=== PATIENT | male | born 1965 | race American Indian/Alaskan Native ===

== ENCOUNTER 2020-07-22 06:06 | Emergency (ER) | payer SELFPAY ==
[2020-07-22] MEDS ORDERED: THIAMINE 100 MG, FOLIC ACID 1 MG, MULTIPLE VITAMIN INJ, ADULT 10 ML in SODIUM CHLORIDE ... IV ONE (06:27)
--- NOTE | 2020-07-22 06:33 | Emergency Department Report ---
ED Alcohol HPI - General Chief Complaint: Alcohol Stated Complaint: ETOH Time Seen by Provider: 07/22/20 06:27 Source: patient, EMS Mode of arrival: Stretcher Limitations: Other - History of Present Illness Initial Comments: Patient is 55 years old male with history of chronic alcohol abuse. Patient brought to the emergency room via EMS from a warehouse after patient became confused and started exposing his private area to the people around him. Upon arrival patient is alert however is confused. Stroke scale is 0 as patient is moving all his extremities with no difficulties and no significant slurred speech or can be observed. Patient also complaining of mild headache. Patient has a dry blood on his face and he stated that he fell last night. Patient denied any neck pain or injury. Patient also denied any chest pain or shortness of breath. No abdominal pain nausea or vomiting. MD Complaint: alcohol intoxication Last Drink: just [employer] Chronic Alcohol Use: Yes Recent Trauma: Yes Treatments Prior to Arrival: none - Related Data Allergies Allergy/AdvReac Type Severity Reaction Status Date / Time No Known Allergies Allergy Verified 07/22/20 06:29 ED Review of Systems ROS: Stated complaint: ETOH Other details as noted in HPI Comment: All other systems reviewed and negative Constitutional: denies: chills, fever Respiratory: denies: cough, shortness of breath, SOB with exertion Cardiovascular: denies: chest pain, palpitations Gastrointestinal: denies: abdominal pain, nausea, vomiting Musculoskeletal: denies: back pain Neurological: headache. denies: weakness, numbness, paresthesias Psychiatric: denies: visual hallucinations, homicidal thoughts, suicidal thoughts ED Past Medical Hx - Past Medical History Previous Medical History?: Yes Hx Diabetes: Yes Hx Asthma: Yes - Surgical History Additional Surgical History: unknown - Social History Smoking Status: Current Every Day Smoker Substance Use Type: Alcohol, Marijuana ED Physical Exam - General Limitations: Other General appearance: alert, appears intoxicated - Head Head exam: Present: other (dried blood on the face.) - Eye Eye exam: Present: normal appearance, PERRL - ENT ENT exam: Present: normal exam, normal orophraynx, mucous membranes moist - Neck Neck exam: Present: normal inspection, full ROM. Absent: tenderness, meningismus, lymphadenopathy, thyromegaly - Respiratory Respiratory exam: Present: normal lung sounds bilaterally - Cardiovascular Cardiovascular Exam: Present: regular rate, normal rhythm, normal heart sounds - GI/Abdominal GI/Abdominal exam: Present: soft, normal bowel sounds. Absent: distended, tenderness, guarding, rebound, rigid, organomegaly, mass, bruit, pulsatile mass, hernia - Extremities Exam Extremities exam: Present: normal inspection, full ROM, normal capillary refill. Absent: pedal edema, calf tenderness - Back Exam Back exam: Present: normal inspection, full ROM. Absent: CVA tenderness (R), CVA tenderness (L) - Neurological Exam Neurological exam: Present: alert, oriented X3, CN II-XII intact, normal gait, reflexes normal - Skin Skin exam: Present: warm, intact, normal color ED Course Vital Signs 07/22/20 07/22/20 07/22/20 06:23 10:53 20:00 Temperature Pulse Rate 94 H 66 Respiratory 16 17 20 Rate Blood Pressure 114/83 Blood Pressure 108/67 [Right] O2 Sat by Pulse 98 99 98 Oximetry 07/23/20 07/23/20 07/23/20 01:53 07:12 07:20 Temperature 97.6 F Pulse Rate 69 80 78 Respiratory 18 11 L 18 Rate Blood Pressure Blood Pressure 120/88 [Right] O2 Sat by Pulse 98 95 99 Oximetry 07/23/20 07/23/20 07/23/20 07:30 07:45 08:00 Temperature Pulse Rate 88 69 81 Respiratory 14 19 20 Rate Blood Pressure 113/62 108/55 104/58 Blood Pressure [Right] O2 Sat by Pulse 95 96 97 Oximetry 07/23/20 07/23/20 07/23/20 08:01 08:15 08:30 Temperature 97.8 F Pulse Rate 86 86 87 Respiratory 20 13 22 Rate Blood Pressure 100/66 103/71 Blood Pressure 120/70 [Right] O2 Sat by Pulse 98 99 96 Oximetry 07/23/20 07/23/20 07/23/20 08:46 09:00 09:16 Temperature Pulse Rate 101 H 90 81 Respiratory 42 H 20 22 Rate Blood Pressure 103/71 103/71 95/51 Blood Pressure [Right] O2 Sat by Pulse 94 97 96 Oximetry 07/23/20 07/23/20 07/23/20 09:30 09:45 10:00 Temperature Pulse Rate Respiratory 16 Rate Blood Pressure 106/56 96/57 112/76 Blood Pressure [Right] O2 Sat by Pulse 85 88 Oximetry 1207/23/20 07/23/20 10:15 10:30 10:45 Temperature Pulse Rate Respiratory Rate Blood Pressure 102/59 103/59 96/59 Blood Pressure [Right] O2 Sat by Pulse Oximetry 07/23/20 07/23/20 07/23/20 11:00 11:16 11:30 Temperature Pulse Rate Respiratory Rate Blood Pressure 102/63 111/55 96/58 Blood Pressure [Right] O2 Sat by Pulse Oximetry 07/23/20 07/23/20 07/23/20 11:47 12:01 12:15 Temperature Pulse Rate Respiratory Rate Blood Pressure 126/79 90/53 98/58 Blood Pressure [Right] O2 Sat by Pulse Oximetry 07/23/20 07/23/20 07/23/20 12:30 12:45 13:30 Temperature Pulse Rate Respiratory Rate Blood Pressure 100/65 92/61 92/61 Blood Pressure [Right] O2 Sat by Pulse 84 Oximetry ED Medical Decision Making - Lab Data Result diagrams: 07/22/20 06:37 07/22/20 06:37 - Medical Decision Making Patient is 55 years old male with history of chronic alcohol abuse. Patient brought to the emergency room via EMS from a warehouse after patient became con fused and started exposing his private area to the people around him. Upon arrival patient is alert however is confused. Stroke scale is 0 as patient is moving all his extremities with no difficulties and no significant slurred speech or can be observed. Patient also complaining of mild headache. Patient has a dry blood on his face and he stated that he fell last night. Patient denied any neck pain or injury. Patient also denied any chest pain or shortness of breath. No abdominal pain nausea or vomiting. Patient became very agitated and had to receive Geodon 20 mg IM. Labs reviewed and is unremarkable. CT brain and CT facial still pending. Patient will need psychiatric evaluation as his alcohol level is negative. I believe this is most likely acute psychosis with possible history of schizophrenia given patient presentation. Patient has been evaluated by our psychiatric team and advised to discharge patient and follow-up as an outpatient. Patient is alert, oriented x3 no acute distress. Patient denying suicidal or homicidal ideation. Patient also denied any visual or auditory hallucination. Patient is medically and psychiatrically stable for discharge. Critical care attestation.: If time is entered above; I have spent that time in minutes in the direct care of this critically ill patient, excluding procedure time. ED Disposition Clinical Impression: Altered mental status, Substance abuse Disposition: DC-01 TO HOME OR SELFCARE Is pt being admited?: No Condition: Stable Additional Instructions: H[facility]ELESS RESOURCES: [facility]? If you are in need of help or know someone who does, please contact us at [email or web address] , or come to our offices at [address] [place] [phone], Wednesday-Wednesday beginning at 8AM. [facility] Admission at 7am Wed to Wed Address[place] [address] Client Engagement [phone] Regular program admission occurs Wednesday through Wednesday at 7:00 amand operates on a first come, first serve basis.Because we cant anticipate program availability in advance andprogram spots are in high demand, we recommend arriving early. Space fills up fast! Next steps can include: Assignment to a [facility] program bed Connection to and placement in a partner program, or Referral to a partner agency [facility]: [facility] Address: [address] [place] [address] How do I join the [facility] housing program? Our housing programs are offered based on availability. If you are looking to participate in our housing program, simply call [phone] to find out if we have available space. Since we do receive many calls, please allow up to 48 hours for one of our housing specialists to return your call. If we do not have vacancies, we suggest callingthe [facility] hotline at 211 for additional housing options. [facility] Admission at 4:30pm daily Address: [place] [address] The [facility] in2nite!goal is to take chronically homeless men and help them overcome their barriers, change them as human beings,making them productive and self- sufficient individuals. Each [employer] participant is housed at our facility for up to a year while they participate in transitional work (earning $7.40/hr for 30+ hours per week). All participants renounce dependency and remain drug and alcohol free. Personal support, case management, and workforce training is offered throughout the program. We also provide AA/NA Classes, GED classes, support in obtaining a lease purchase truck driver's licenses,help setting up a bank account,and life skill preparation courses. IF A MAN IS COMMITTED TO BEING CLEAN, TO ADDRESSING THE PAST, AND TO WORKING, WE WILL HELP HIM GET A SCIENCE SPECIALIST JOB, TRANSPORTATION AND PERMANENT HOUSING WITHIN A YEAR. [employer] [address] [place] [address] [email or web address] In case of an emergency, please contact the following numbers: [place] Crisis and Access Line: Number: Crisis Text Line: (Text START) Number: 385313 Suicide Prevention Line: Number: Emergency Number: 911 SUBSTANCE ABUSE PROGRAMS: [facility]: Location: [place], [place] [facility] Address: [address] [place] [address] [facility] Address: [address] [place] [address] [facility]: Address: [address] [place] [address] [facility]: Address: [address] [place] [address] [facility] Address: [address] [place] [address]. Please contact above numbers to attempt placement into free based program. Medicaid Programs: [facility]: Address: [address] [place] [address] [facility]: Address: [address] [place] [id number] Referrals: PRIMARY CARE, [Primary Care Provider] - 3-5 Days
[2020-07-22 06:57] LABS: Basophils % (Auto) 0.4 % (0.0-1.8); Eosinophils % (Auto) 0.3 % (0.0-4.3); Hematocrit 42.2 % (35.5-45.6); Hemoglobin 14.5 gm/dl (11.8-15.2); Lymphocytes # (Auto) 1.9 K/mm3 (1.2-5.4); Lymphocytes % (Auto) 21.8 % (13.4-35.0); Mean Corpuscular HGB Conc 34 % (32-34); Mean Corpuscular Volume 96 fl (84-94); Platelet Count 303 K/mm3 (140-440); Red Blood Count 4.41 M/mm3 (3.65-5.03); Red Cell Distribution Width 14.7 % (13.2-15.2)
[2020-07-22 07:05] LABS: INR 1.06 (0.87-1.13)
[2020-07-22 07:25] LABS: Blood Urea Nitrogen 12 mg/dL (9-20); Calcium 10.1 mg/dL (8.4-10.2); Hemolysis Index 35
[2020-07-22 07:28] LABS: Albumin 4.5 g/dL (3.9-5); Bilirubin,Direct 0.3 mg/dL (0-0.2)
[2020-07-22] MEDS ORDERED: ZIPRASIDONE MESYLATE 20 MG VIAL IM ONE (07:28)
[2020-07-22] MEDS ORDERED: WATER FOR INJ Sterile (PF) 10 ML ONE (07:29)
[2020-07-22 07:30] LABS: BUN/Creatinine Ratio 20
[2020-07-22 13:12] LABS: Bacteria,Urine 1+ /HPF (Negative); Bilirubin,Urine NEG (Negative); Blood,Urine NEG (Negative); Color,Urine Yellow (Yellow); Protein,Urine <15 mg/dL mg/dL (Negative); WBC,Urine < 1.0 /HPF (0.0-6.0)
[2020-07-22 13:15] LABS: Amphetamine Screen,Urine Negative; Benzodiazepines Screen,Urine Negative; Cocaine Screen,Urine Negative; Methadone Screen,Urine Negative; Opiate Screen,Urine Negative
[2020-07-22 13:43] LABS: Cannabinoid Screen,Urine PRESUMPTIVE POSITIVE
--- NOTE | 2020-07-22 17:45 | Cat Scan Report ---
CT cervical spine wo con INDICATION / CLINICAL INFORMATION: 55 years Male; MAIN. TECHNIQUE: Axial CT images of the cervical spine were obtained. Sagittal and coronal reformatted images were pr oduced. All CT scans at this location are performed using CT dose reduction for ALARA by means of aut omated exposure control. COMPARISON: None available. FINDINGS: POST-SURGICAL CHANGES: None. ALIGNMENT: There is no significant spondylolisthesis involving the cervical spine. VERTEBRAE: There are multilevel degenerative changes with marked disc space narrowing associated endp late findings from C4-5 to C6-7. However, there is no clear CT evidence of acute fracture of the cerv ical spine. INTRAVERTEBRAL DISCS: The facet joint hypertrophy at C3 L4 results in moderate to marked right and mo derate left neural foraminal narrowing. There is component of vacuum phenomenon involving the left fa cet joint arthropathy at this level. The spondylosis at C4-5 effaces the right lateral recess with marked right neural foraminal narrowing . Slightly milder narrowing is seen on the left the spondylosis at C5-6 also effaces the ventral suba rachnoid space. There is marked foraminal narrowing bilaterally. The posterior spondylosis at C6-7 effaces the ventral subarachnoid space. There is also marked neural from narrowing bilaterally at this level. PARASPINAL SOFT TISSUES: No prevertebral soft tissue fluid collections are identified. ADDITIONAL FINDINGS: There is notable applesauce chronic calcification involving the carotid bifurcat ions bilaterally. IMPRESSION: 1. There is no CT ends of acute fracture involving the cervical spine. 2. There are multilevel degenerative changes as detailed above. Signer Name: Valentin Villa MD Signed: 07/22/2020 5:41 PM Workstation Name: [id number]
--- NOTE | 2020-07-22 17:53 | Cat Scan Report ---
CT head/brain wo con INDICATION / CLINICAL INFORMATION: 55 years Male; MAIN. TECHNIQUE: Routine CT head without contrast. All CT scans at this location are performed using CT dos e reduction for ALARA by means of automated exposure control. COMPARISON: None. FINDINGS: BRAIN / INTRACRANIAL CONTENTS: The motion significantly degrades the image quality despite repeat regan ging. However, there are notable white matter changes involving frontal lobes with septal malacia ext ending anteriorly on the left. This finding may be related to old infarct or possibly trauma given th e location. 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 There is mild cerebral atrophy with associated prominence of the ventricular system. There is indenta tion involving the outer table of the left frontal calvarium as well as irregularity of the nasal bon es which is likely related to previous trauma. ORBITS: No significant abnormality of visualized orbits. SINUSES / MASTOIDS: The visualized paranasal sinuses are clear. CRANIOCERVICAL JUNCTION: No significant abnormality. ADDITIONAL FINDINGS: None. IMPRESSION: 1. The study is limited by motion. However, there are notable cerebral white matter changes along wit h encephalomalacia involving the left frontal lobe as detailed. There is no gross CT evidence of acut e intracranial hemorrhage. Signer Name: Valentin Villa MD Signed: 07/22/2020 5:49 PM Workstation Name: [id number]
--- NOTE | 2020-07-23 01:08 | Emergency Department Report ---
Blank Doc - Documentation Documentation: CT of the patient's head and cervical spine reviewed by me upon the completion and radiological interpretation. CT of the head and neck did not show any acute findings. Patient is medically clear and awaiting psychiatric evaluation.
[2020-07-23 12:53] VITALS: BP 92/61
== END 2020-07-23 17:16 | disposition home or self-care (01) ==
LOC: ED 06:06
DX: F10.129 Alcohol abuse with intoxication, unspecified (principal); R41.82 Altered mental status, unspecified; E11.9 Type 2 diabetes mellitus without complications; J45.909 Unspecified asthma, uncomplicated; F17.200 Nicotine dependence, unspecified, uncomplicated; F12.10 Cannabis abuse, uncomplicated
CPT/HCPCS: 36415; 70450; 72125; 80048; 80076; 80307; 81001; 85025; 85610; 93005; 96372; 99285; J3411; J3486; J7030; 80320; G0480